=== PATIENT | female | born 1970 | race Hispanic/Latino ===

== ENCOUNTER 2022-11-22 07:48 | Inpatient (IN) | payer OTHER, SELFPAY ==
--- OUTSIDE RECORDS SUMMARY | 2022-11-22 07:50 | XMS REPORT | Continuity of Care Document ---
:1970 Author Organization [facility] t Address [address] [place] [address] [place] [address] Care Team Providers Name Role Phone KARLA SMITH Primary Care Physician Unavailable RADIOLOGY Attending Clinician Unavailable Radiology Attending Clinician Unavailable Doctor Unassigned, [place] Attending Clinician Unavailable TORI JONES Attending Clinician Unavailable KARLA SMITH Admitting Clinician Unavailable Problems Condition Condition Condition Status Onset Resolution Last Treating Co mments Source Name Details Category Date Date Treatment Clinician Date Disease Active 2011-04 Overview: Un david delivery delivery 0-08 Formattin ity of delivered delivered 00:00: g of this [place] 00 note Medical might be Branch different from the original. ICD10 Diagnosis Term Website Project Manager Utility Encounter Encounter Disease Active 2011-04 Overview: Univers for for 0-08 Formattin ity of sterilizat sterilizat 00:00: g of this [place] ion ion 00 note Medical might be Branch different from the original. ICD10 Diagnosis Term Website Project Manager Utility AMA AMA Disease Active 2011-04 Univers (advanced (advanced 0-08 ity of maternal maternal 00:00: [place] age) age) 00 Medical multigravi multigravi Br anch da 35+ da 35+ Allergies, Adverse Reactions, Alerts Allergy Allergy Status Severity Reaction(s) Onset Inactive Treating Comm ents Source Name Type Date Date Clinician NO KNOWN Drug Active Univers ALLERGIE Class ity of S [facility] Social History Social Habit Start Date Stop Date Quantity Comments Source Tobacco use and 2012-01-23 2012-01-23 Never used [facility] exposure 00:00:00 00:00:00 Medical Branch Sex [birth year] [facility] [place] 00:00:00 00:00:00 Medical Branch Smoking Status Start Date Stop Date Source Never smoker [facility] Medications Ordered Filled Start Stop Current Ordering Indication Dosage Frequency Signature Comments Components Source Medication Medication Date Date Medication? Clinician (SIG) Name Name cetirizine 2020-0 Yes [id number] 10mg Take 1 Univers (ZYRTEC) 10 1-29 tablet by ity of mg tablet 00:00: mouth 00 daily. Medical Branch benzonatate 2020-0 Yes [id number] 200mg Take 1 Univers 200 mg 1-29 capsule by ity of capsule 00:00: mouth 3 [place] 00 (three) Medical times [place] daily as needed for Cough. cetirizine 2020-0 Yes [id number] 10mg Take 1 Univers (ZYRTEC) 10 1-29 tablet by ity of mg tablet 00:00: mouth 00 daily. Medical Branch benzonatate 2020-0 Yes [id number] 200mg Take 1 Univers 200 mg 1-29 capsule by ity of capsule 00:00: mouth 3 [place] 00 (three) Medical times [place] daily as needed for Cough. Immunizations Ordered Filled Immunization Date Status Comments Sourc e Immunization Name Name Influenza Virus 2019-05-19 Completed Universit y of Vaccine Quad .5 mL 00:00:00 [facility] IM 6+ MO Branch Influenza Virus 2019-05-19 Completed Universit y of Vaccine Quad .5 mL 00:00:00 [facility] 6+ [place] Branch Procedures Procedure Date / Time Performed Performing Clinician Sourc e ASSIGNMENT OF BENEFITS 2021-05-23 18:50:51 Doctor Unassigned, No [facility] Name Medical Branch Encounters Start End Encounter Admission Attending Care Care Encounter Source Date/Time Date/Time Type Type Clinicians Facility Department ID 2021-05-23 2021-05-23 Outpatient R RADIOLOGY [facility] [id number] Univers 12:51:13 23:59:00 ity of [facility] 2021-05-23 2021-05-23 Hospital Radiology [facility] [id number] Univers 12:45:00 23:59:00 Encounter [place] [id number] ity of [place] [id number] [facility] [id number] [facility] 807 Branch 2021-05-23 2021-05-23 Orders Doctor ESTELA [id number] Univers 00:00:00 00:00:00 Only Unassigned, BIJAN [id number] ity of [place] [facility] [id number] G[place] as [id number] [place] [address] Branch 2019-05-19 2019-05-19 Outpatient R KAREN [facility] [id number] Univers 10:20:00 11:15:40 TORI garcia o f [facility] 2012-04-06 2012-04-06 Outpatient R [facility] [id number] Univers 00:00:00 14:11:48 5 ity [facility] Results Test Description Test Time Test Comments Results Result Comments Source HEMOGLOBIN A1c 2021-12-28 11:06:09 Test Item Value Reference Range Interpretation Comme nts HEMOGLOBIN A1c (test code = 9.3 % 4.2-5.6 H CITIZEN OF [employer] [address]) GUIDELINES FOR HGB A1C: PREDIABETES/INC REASED RISK . . . . . . . 5.7-6.4% DIAGNO SIS OF DIABETES . . . . . . . . . >=6.5% WITH CONFIRMATION OR APPROPRIATE SYM PTOMS NOTE: ASSAY MAY BE AFFECTED BY HEM OGLOBINOPATHIES (SICKLE CELL ANEMIA, S- C DISEASE, OTHERS) OR ARTIFICIALLY LO WERED BY DECREASED RED CELL SURVIVAL ( HEMOLYTIC ANEMIAS, BLOOD LOSS, ETC.). CO NSIDER ALTERNATE TESTING OR LABORATORY C ONSULTATION. UNLESS OTHERWISE INDIC ATED, ALL TESTING PERFORMED [facility], [place] [address] LABOR ATORY DIRECTOR: RAJIV SPRAGUE M.D. CLIA NUMBER [id number] [place] [id number] ALBUMIN/CREATININE RATIO, URINE, [id number] 06:51:51 Test Item Value Reference Range Interpretation Comments CREATININE, URINE, 63.2 MG/DL NOT ESTAB CONC. (test code = 2072) ALBUMIN, URINE, 97.9 MG/DL NOT ESTAB RANDOM (test code = 13446) CALC ALBUMIN/CREAT, 1549 MG/G <30 H Note: RND (test code = Albumin/Cre atinine 34209) ratio reference interval reflec ts ADA and NKF guideli silke. COMPREHENSIVE METABOLIC [id number] 04:26:12 Test Item Value Reference Range Interpretation Comments GLUCOSE (test code = 191 MG/DL 70-99 H 2216) BUN (test code = 12 MG/DL 6-20 2207) CREATININE (test 0.66 MG/DL 0.60-1.30 code = 2214) eGFR (2020 CKD-EPI) 107 >60 (test code = 61809) ML/MIN/1.73 CALC BUN/CREAT (test 18 RATIO 6-28 code = 2235) SODIUM (test code = 138 MEQ/L 980-161 3167) POTASSIUM (test code 4.6 MEQ/L 3.5-5.4 = 2227) CHLORIDE (test code 101 MEQ/L 95-107 = 221) CARBON DIOXIDE (test 26 MEQ/L 19-31 code = 2206) CALCIUM (test code = 9.2 MG/DL 8.5-10.5 2208) PROTEIN, TOTAL (test 7.9 G/DL 6.1-8.3 code = 222) ALBUMIN (test code = 4.0 G/DL 3.5-5.2 2200) CALC GLOBULIN (test 3.9 G/DL 1.9-3.7 H code = 2240) CALC A/G RATIO (test 1.0 RATIO 1.0-2.6 code = 2234) BILIRUBIN, TOTAL 0.3 MG/DL See_Comment [Automated message] (test code = 2207) The syste m which generated this result transmit lisandro reference range : <=1.2. The refe rence range was not u sed to interpret th is result as normal/abnormal . ALKALINE PHOSPHATASE 95 U/L 40-128 (test code = 2204) AST (test code = 32 U/L 9-40 2217) ALT (test code = 21 U/L 5-40 2218) LIPID [id number] 04:26:12 Test Item Value Reference Range Interpretation Comments CHOLESTEROL (test 182 MG/DL <200 code = 2210) TRIGLYCERIDES (test 209 MG/DL <150 H code = 2232) HDL CHOLESTEROL (test 45 MG/DL >39 code = 2220) CALC LDL CHOL (test 104 MG/DL <100 H NOTE: C ALCULATED LDL code = 2237) IS BASED ON RAMIN-ZHANG METHOD WHICHINCLUDES ADJUSTABLE TRIGLYCERIDE:VL DL CHOLESTEROL RAT IO.THIS FACTOR VARIES B Y MEASURED TRIGLY CERIDE AND NON-HDLCHOL ESTEROL CONCENTRATIONS WITH INCREASED CALCU LATED LDL SEENIN HIGH ER TRIGLYCERIDE OR LOWER NON-HDL SPECIME NS. FOR MOREINFORMATION , SEE CLIENT ANNOUNCE MENT AT [email or web address] RISK RATIO LDL/HDL 2.31 RATIO <3.22 (test code = 2238)
[2022-11-22] MEDS ORDERED: NA CHLORIDE 0.9% 1,000 ML ONE (08:20)
[2022-11-22] MEDS ORDERED: MORPHINE 4 MG/ML SYR ONE ×2 (08:20→10:27)
[2022-11-22] MEDS ORDERED: ONDANSETRON 4 MG/2 ML VIAL ONE ×2 (08:21→12:27)
[2022-11-22 08:45] LABS: Specific Gravity 1.028 (1.005-1.030); Urine Bacteria None Seen /HPF (<20); Urine Bilirubin NEGATIVE (Negative); Urine Blood 1+ (Negative); Urine Clarity Extremely Turbid (Clear); Urine Color Yellow (Yellow); Urine Glucose 4+ (Over) (Negative); Urine Mucus Slight /HPF (None Seen); Urine Protein 3+ (Negative); Urine Urobilinogen Normal (Normal); Urine pH 6.5 (5.0-7.0)
[2022-11-22 08:50] LABS: Absolute Lymphocytes (CBC) 1.5 K/uL (0.7-4.9); Albumin 3.8 g/dL (3.4-5.0); Bilirubin Total 0.6 mg/dL (0.2-1.0); Hematocrit 39.6 % (36.0-45.0); Lymphocytes % 11.8 % (15.3-44.8); MCV 86.9 fL (80-100); Platelets 434 thou/uL (152-406); Potassium 4.1 mEq/L (3.5-5.1); Protein, Total 9.4 g/dL (6.4-8.2); RBC Red Blood Cell Count 4.55 M/uL (3.86-4.86)
--- NOTE | 2022-11-22 09:27 | RAD REPORT ---
EXAM DESCRIPTION: CTAbdomen Pelvis W Contrast - 11/22/2022 9:15 am CLINICAL HISTORY: Abdominal pain. ABD PAIN COMPARISON: Abdomen Pelvis W Contrast dated 03/15/2016; CT ABD PELVIS W CONTRAST dated 09/21/2013 TECHNIQUE: Biphasic CT imaging of the abdomen and pelvis was performed with 100 ml non-ionic IV cont rast. All CT scans are performed using dose optimization technique as appropriate and may include automated exposure control or mA/KV adjustment according to patient size. FINDINGS: Mild atelectasis is present in both lung bases. Mild diffuse fatty liver. The spleen, pancreas, adrenal glands and kidneys are within normal limits. There is a very large complex ventral hernia containing multiple loops of large small bowel. Centrall y there are some dilated bowel loops present with mild edema within the fat. This could indicate mild incarceration. No bowel obstruction. No pneumatosis coli. No evidence of significant lymphadenopath y. No suspicious bony findings. IMPRESSION: Very large complex ventral hernia as detailed. It is dilated stool-filled bowel loops in the medial left component of the hernia with edema within the omental fat suggests partial incarcera tion component is present. No active bowel obstruction or pneumatosis is seen, however.
--- NOTE | 2022-11-22 11:49 | ER ---
Nurse's Notes [facility] Name: Ksenia Dominguez Age: 51 yrs Sex: Female : 1970 Arrival Date: 11/22/2022 Time: 07:48 Bed 16 Private MD: Diagnosis: Ventral hernia without obstruction or gangrene Presentation: 11/22 07:55 Chief complaint: Patient states: "She has a hernia to her lower abdomen and that's ss where it is hurting." Pt c/o LLQ pain that began last night. Denies N/V/D and/or fever. Coronavirus screen: Client denies travel out of the [place] in the last 14 days. Ebola Screen: Patient denies exposure to infectious person. Patient denies travel to an Ebola-affected area in the 21 days before illness onset. Initial Sepsis Screen: Does the patient meet any 2 criteria? No. Patient's initial sepsis screen is negative. Does the patient have a suspected source of infection? No. Patient's initial sepsis screen is negative. Risk Assessment: Do you want to hurt yourself or someone else? Patient reports no desire to harm self or others. Onset of symptoms was November 21, 2022. 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 - Social history:: Smoking status: Patient denies any tobacco usage or history of. Screenin:23 [facility] ED Fall Risk Assessment (Adult) History of falling in the last 3 months, kc6 including since admission No falls in past 3 months (0 pts) Confusion or Disorientation No (0 pts) Intoxicated or Sedated No (0 pts) Impaired Gait No (0 pts) Mobility Assist Device Used No (0 pt) Altered Elimination No (0 pt) Score/Fall Risk Level 0 - 2 = Low Risk. Abuse screen: Denies threats or abuse. Denies injuries from another. Nutritional screening: No deficits noted. Tuberculosis screening: No symptoms or risk factors identified. Assessment: 08:23 General: Appears in no apparent distress. uncomfortable, obese, Behavior is calm, kc6 cooperative, appropriate for age. Pain: Complains of pain in umbilical area and left upper quadrant Pain does not radiate. Pain currently is 8 out of 10 on a pain scale. Noted to be guarding, moaning. Neuro: Level of Consciousness is awake, alert, obeys commands, Oriented to person, place, time, situation, Appropriate for age. Cardiovascular: Capillary refill < 3 seconds. Respiratory: Airway is patent Trachea midline Respiratory effort is even, unlabored, Respiratory pattern is regular, symmetrical. GI: Abdomen is round non-distended, obese, Bowel sounds present X 4 quads. Abd is soft X 4 quads Abdomen is tender to palpation in umbilical area and left upper quadrant Reports nausea, vomiting, Patient currently denies diarrhea. : No signs and/or symptoms were reported regarding the genitourinary system. Urine is clear. EENT: No signs and/or symptoms were reported regarding the EENT system. Derm: No signs and/or symptoms reported regarding the dermatologic system. Skin is intact, is healthy with good turgor, Skin is pink, warm \\T\\ dry. Musculoskeletal: No signs and/or symptoms reported regarding the musculoskeletal system. Circulation, motion, and sensation intact. Capillary refill < 3 seconds, Range of motion: intact in all extremities. 08:52 Reassessment: Patient appears in no apparent distress at this time. No changes from kc6 previously documented assessment. Patient and/or family updated on plan of care and expected duration. Pain level reassessed. Patient is alert, oriented x 3, equal unlabored respirations, skin warm/dry/pink. Patient denies pain at this time. Patient states feeling better. Patient states symptoms have improved. 09:46 Reassessment: Patient appears in no apparent distress at this time. No changes from kc6 previously documented assessment. Patient and/or family updated on plan of care and expected duration. Pain level reassessed. Patient is alert, oriented x 3, equal unlabored respirations, skin warm/dry/pink. 10:41 Reassessment: Patient appears in no apparent distress at this time. No changes from kc6 previously documented assessment. Patient and/or family updated on plan of care and expected duration. Pain level reassessed. Patient is alert, oriented x 3, equal unlabored respirations, skin warm/dry/pink. 11:33 Reassessment: Patient appears in no apparent distress at this time. No changes from kc6 previously documented assessment. Patient and/or family updated on plan of care and expected duration. Pain level reassessed. Patient is alert, oriented x 3, equal unlabored respirations, skin warm/dry/pink. Patient denies pain at this time. Patient states feeling better. Patient states symptoms have improved. 12:38 Reassessment: Patient appears in no apparent distress at this time. No changes from kc6 previously documented assessment. Patient and/or family updated on plan of care and expected duration. Pain level reassessed. Patient is alert, oriented x 3, equal unlabored respirations, skin warm/dry/pink. 13:51 Reassessment: Patient appears in no apparent distress at this time. No changes from kc6 previously documented assessment. Patient and/or family updated on plan of care and expected duration. Pain level reassessed. Patient is alert, oriented x 3, equal unlabored respirations, skin warm/dry/pink. 14:57 Reassessment: Patient appears in no apparent distress at this time. No changes from kc6 previously documented assessment. Patient and/or family updated on plan of care and expected duration. Pain level reassessed. Patient is alert, oriented x 3, equal unlabored respirations, skin warm/dry/pink. Vital Signs: 07:55 BP 163 / 120; Pulse 104; Resp 20; Temp 98(O); Pulse Ox 96% ; Weight 145.15 kg; Height 5 ss ft. 5 in. ; Pain 8/10; 08:23 BP 145 / 100; Pulse 96; Resp 19 S; Pulse Ox 99% on R/A; Pain 8/10; kc6 08:52 BP 109 / 75; Pulse 90; Resp 18 S; Pulse Ox 98% on R/A; Pain 0/10; kc6 09:46 BP 131 / 77; Pulse 83; Resp 17 S; Pulse Ox 96% on R/A; kc6 10:41 BP 127 / 77; Pulse 87; Resp 16 S; Pulse Ox 94% on R/A; kc6 11:33 BP 120 / 72; Pulse 85; Resp 18 S; Pulse Ox 94% on R/A; kc6 12:38 BP 132 / 83; Pulse 87; Resp 17 S; Pulse Ox 96% on R/A; Pain 6/10; kc6 13:51 Pulse 87; Resp 17 S; Pulse Ox 95% on R/A; kc6 14:57 BP 143 / 94; Pulse 85; Resp 17 S; Pulse Ox 93% on R/A; kc6 07:55 Body Mass Index 53.25 (145.15 kg, 165.1 cm) ss 07:55 Pain Scale: Adult ss 08:23 Pain Scale: Adult kc6 08:52 Pain Scale: Adult kc6 12:38 Pain Scale: Adult kc6 ED Course: 07:51 Patient arrived in ED. im 07:57 Triage completed. ss 07:58 Arm band placed on. ss 07:59 Jeimy Walters FNP-C is PHCP. kb 07:59 Salomón Ramirez MD is Attending Physician. kb 08:02 Verona Gonzalez RN is Primary Nurse. kc6 08:25 Patient has correct armband on for positive identification. Placed in gown. Bed in low kc6 position. Call light in reach. Side rails up X 1. Adult w/ patient. 08:50 Inserted saline lock: 20 gauge in left antecubital area, using aseptic technique. aw1 08:50 Initial lab(s) drawn, by me, sent to lab. Urine collected: clean catch specimen, clear. aw1 09:16 CT Abd/Pelvis - IV Contrast Only In Process Unspecified. EDMS 11:48 Dhruv Bradshaw MD is Hospitalizing Provider. kb 14:45 No provider procedures requiring assistance completed. kc6 14:45 Patient admitted, IV remains in place. kc6 Administered Medications: 08:22 Drug: morphine IVP or IV 4 mg Route: IVP; Infused Over: 4 mins; Site: right antecubital;kc6 08:53 Follow up: Response: No adverse reaction; Pain is decreased; RASS: Alert and Calm (0) kc6 08:22 Drug: Ondansetron IVP 4 mg Route: IVP; Site: right antecubital; kc6 08:53 Follow up: Response: No adverse reaction; Nausea is decreased; Vomiting decreased kc6 08:22 Drug: NS 0.9% IV 1000 ml Route: IV; Rate: 1000 ml; Site: right antecubital; kc6 12:12 Follow up: Response: No adverse reaction; IV Status: Completed infusion; IV Intake: kc6 1000ml 10:25 Drug: morphine IVP or IV 4 mg Route: IVP; Infused Over: 4 mins; Site: right antecubital;kc6 11:44 Follow up: Response: No adverse reaction; Pain is decreased; RASS: Alert and Calm (0) kc6 12:31 Drug: Mineral Oil 30 ml Route: PO; kc6 13:52 Follow up: Response: No adverse reaction kc6 12:31 Drug: fentaNYL (PF) IVP 50 mcg Route: IVP; Site: right antecubital; kc6 13:52 Follow up: Response: No adverse reaction; Pain is decreased; RASS: Alert and Calm (0) kc6 12:31 Drug: Ondansetron IVP 4 mg Route: IVP; Site: right antecubital; kc6 13:52 Follow up: Response: No adverse reaction; Nausea is decreased; Vomiting decreased kc6 Medication: 14:45 VIS not applicable for this client. kc6 Intake: 12:12 IV: 1000ml; Total: 1000ml. kc6 Outcome: 11:48 Decision to Hospitalize by Provider. kb 14:45 Admitted to Med/surg accompanied by tech, via wheelchair, room 229, with chart, Report kc6 called to Melanie Fierro RN 14:45 Condition: stable 14:45 Instructed on the need for admit. kc6 15:04 Patient left the ED. kc6 Signatures: Dispatcher [employer] Jeimy Franco, MICHAEL-C YACHT RIGGER-Linh Baltazar RN RN ss Campbell, Kaitlyn, RN RN kc6 Bhumika Mac Alyssa aw1
--- NOTE | 2022-11-22 11:49 | EDPHYS ---
Physician Documentation [facility] Name: Ksenia Dominguez Age: 51 yrs Sex: Female : 1970 Arrival Date: 11/22/2022 Time: 07:48 Bed 16 Private MD: ED Physician Salomón Ramirez HPI: 11/22 08:16 This 51 yrs old Female presents to ER via Ambulatory with complaints of kb Abdominal Pain. 08:16 The patient presents with abdominal pain in the left upper quadrant. Onset: The kb symptoms/episode began/occurred yesterday. The symptoms do not radiate. Associated signs and symptoms: none. The symptoms are described as constant. Modifying factors: The symptoms are alleviated by nothing, the symptoms are aggravated by pressure. Severity of pain: At its worst the pain was moderate in the emergency department the pain is unchanged. The patient has not experienced similar symptoms in the past. The patient has not recently seen a physician. 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 - Social history:: Smoking status: Patient denies any tobacco usage or history of. ROS: 08:15 Constitutional: Negative for fever, chills, and weight loss. kb 08:15 Abdomen/GI: Positive for abdominal pain, Negative for nausea, vomiting, and diarrhea. 08:15 All other systems are negative. Exam: 08:15 Constitutional: This is a well developed, well nourished patient who is awake, alert, kb and in no acute distress. Head/Face: Normocephalic, atraumatic. ENT: Moist Mucous membranes Cardiovascular: Regular rate and rhythm with a normal S1 and S2. No gallops, murmurs, or rubs. No pulse deficits. Respiratory: Respirations even and unlabored. No increased work of breathing. Talking in full sentences Skin: Warm, dry with normal turgor. Normal color. MS/ Extremity: Pulses equal, no cyanosis. Neurovascular intact. Full, normal range of motion. Neuro: Awake and alert, GCS 15, oriented to person, place, time, and situation. Moves all extremities. Normal gait. 08:15 Abdomen/GI: Inspection: obese Bowel sounds: normal, Palpation: soft, in all quadrants, moderate abdominal tenderness, in the left upper quadrant, Hernia: noted in the umbilical area, reduced. Vital Signs: 07:55 BP 163 / 120; Pulse 104; Resp 20; Temp 98(O); Pulse Ox 96% ; Weight 145.15 kg; Height 5 ss ft. 5 in. ; Pain 8/10; 08:23 BP 145 / 100; Pulse 96; Resp 19 S; Pulse Ox 99% on R/A; Pain 8/10; kc6 08:52 BP 109 / 75; Pulse 90; Resp 18 S; Pulse Ox 98% on R/A; Pain 0/10; kc6 09:46 BP 131 / 77; Pulse 83; Resp 17 S; Pulse Ox 96% on R/A; kc6 10:41 BP 127 / 77; Pulse 87; Resp 16 S; Pulse Ox 94% on R/A; kc6 11:33 BP 120 / 72; Pulse 85; Resp 18 S; Pulse Ox 94% on R/A; kc6 12:38 BP 132 / 83; Pulse 87; Resp 17 S; Pulse Ox 96% on R/A; Pain 6/10; kc6 13:51 Pulse 87; Resp 17 S; Pulse Ox 95% on R/A; kc6 14:57 BP 143 / 94; Pulse 85; Resp 17 S; Pulse Ox 93% on R/A; kc6 07:55 Body Mass Index 53.25 (145.15 kg, 165.1 cm) ss 07:55 Pain Scale: Adult ss 08:23 Pain Scale: Adult kc6 08:52 Pain Scale: Adult kc6 12:38 Pain Scale: Adult kc6 MDM: 07:59 Patient medically screened. kb 08:16 Data reviewed: vital signs, nurses notes. kb 11:49 Differential diagnosis: non-specific abd pain, hernia, uti, bowel obstruction. kb Consideration of Admission/Observation Patient was admitted/placed on observation. Escalation of care including admission/observation considered. Management of patient was discussed with the following: Hospitalist: Dr Bradshaw accepts pt for admission. Bus Operator: Dr Huong accepts pt for consultation. Historians other than the Patient: Daughter/Son: daughter. Counseling: I had a detailed discussion with the patient and/or guardian regarding: the historical points, exam findings, and any diagnostic results supporting the discharge/admit diagnosis, lab results, radiology results, the need for further work-up and treatment in the hospital. 11/22 08:00 Order name: CBC with Diff; Complete Time: 08:56 kb 11/22 08:00 Order name: CMP; Complete Time: 08:56 kb 11/22 08:00 Order name: Lipase; Complete Time: 08:56 kb 11/22 08:00 Order name: Urinalysis w/ reflexes; Complete Time: 08:56 kb 11/22 08:48 Order name: Urine Culture EDMS 11/22 09:50 Order name: Lactate w/ 2H reflex if indic.; Complete Time: 10:29 kb 11/22 13:15 Order name: CBC with Automated Diff EDMS 11/22 13:15 Order name: CBC with Automated Diff EDMS 11/22 13:15 Order name: Comprehensive Metabolic Panel EDMS 11/22 13:15 Order name: Comprehensive Metabolic Panel EDMS 11/22 13:15 Order name: Magnesium EDMS 11/22 13:15 Order name: Magnesium EDMS 11/22 08:00 Order name: CT Abd/Pelvis - IV Contrast Only; Complete Time: 09:27 kb 11/22 13:13 Order name: CONS Physician Consult EDMS 11/22 13:15 Order name: NPO EDMS 11/22 08:00 Order name: IV Saline Lock; Complete Time: 08:23 kb 11/22 08:00 Order name: Labs collected and sent; Complete Time: 08:23 kb Administered Medications: 08:22 Drug: morphine IVP or IV 4 mg Route: IVP; Infused Over: 4 mins; Site: right antecubital;kc6 08:53 Follow up: Response: No adverse reaction; Pain is decreased; RASS: Alert and Calm (0) kc6 08:22 Drug: Ondansetron IVP 4 mg Route: IVP; Site: right antecubital; kc6 08:53 Follow up: Response: No adverse reaction; Nausea is decreased; Vomiting decreased kc6 08:22 Drug: NS 0.9% IV 1000 ml Route: IV; Rate: 1000 ml; Site: right antecubital; kc6 12:12 Follow up: Response: No adverse reaction; IV Status: Completed infusion; IV Intake: kc6 1000ml 10:25 Drug: morphine IVP or IV 4 mg Route: IVP; Infused Over: 4 mins; Site: right antecubital;kc6 11:44 Follow up: Response: No adverse reaction; Pain is decreased; RASS: Alert and Calm (0) kc6 12:31 Drug: Mineral Oil 30 ml Route: PO; kc6 13:52 Follow up: Response: No adverse reaction kc6 12:31 Drug: fentaNYL (PF) IVP 50 mcg Route: IVP; Site: right antecubital; kc6 13:52 Follow up: Response: No adverse reaction; Pain is decreased; RASS: Alert and Calm (0) kc6 12:31 Drug: Ondansetron IVP 4 mg Route: IVP; Site: right antecubital; kc6 13:52 Follow up: Response: No adverse reaction; Nausea is decreased; Vomiting decreased kc6 Disposition: 18:25 Co-signature as Attending Physician, Salomón Ramirez MD I reviewed the patient's care rt provided by the Advanced Practice Provider and agree with the diagnosis and treatment plan. Disposition Summary: 11/22/22 11:48 Hospitalization Ordered Hospitalization Status: Inpatient Admission kb Provider: Dhruv Bradshaw [facility] ([facility]) kb Condition: Stable kb Problem: new kb Symptoms: are unchanged kb Bed/Room Type: Standard Room Assignment: 229(11/22/22 14:02) ss Diagnosis - Ventral hernia without obstruction or gangrene kb Forms: - Medication Reconciliation Form kb - SBAR form kb Signatures: Dispatcher [employer] Jeimy Franco, MICHAEL-C ROLLER-Linh Baltazar RN RN ss Verona Gonzalez RN RN kc6 Salomón Ramirez MD MD rt Corrections: (The following items were deleted from the chart) 14:02 11:48 kb ss
[2022-11-22] MEDS ORDERED: MINERAL OIL 30 ML UCUP PO ONE ×3 (12:00→23:19)
--- NOTE | 2022-11-22 12:16 | P.HP ---
Certification for Inpatient Patient admitted to: Inpatient Practitioner: I am a practitioner with admitting privileges, knowledge of patient current condition, hospital course, and medical plan of care. Services: Services provided to patient in accordance with Admission requirements found in Title 42 Section 412.3 of the Code of Federal Regulations Patient History Date of Service: 11/22/22 Reason for admission: Large complex ventral hernia; incarcerated History of Present Illness: 51 yo F, PMH: NIDDM2, Hypertension, Hernia repair (~6 years ago); large ventral hernia Patient presented to the emergency department with left abdominal pain since yesterday. She has had episodes of mild abdominal pain in the past however never this severe. Family reports having a hernia repair done ~[address] Sheehan. She reports nausea/vomiting in the ED. Last BM was yesterday evening. Denies chest pain. No fever or chills. Denies shortness of breath. Patient did experience nausea with vomiting while in the ED on palpation of abdomen prior to admission. Her symptoms are aggravated by pressure/palpation and alleviated by nothing. CT abdomen done in the ED reports very large complex ventral hernia. dilated stool-filled bowel loops in the medial left component of the hernia with edema within the omental fat suggests partial incarceration component is present. No active bowel obstruction or pneumatosis is seen. ED consulted Dr. Borja who recommended admission, mineral oil, and will see patient in consult. Allergies No Known Allergies Allergy (Verified 03/15/16 22:16) Home Medications: Lisinopril [Zestril] 10 mg PO DAILY 11/22/22 Metformin HCl [Glucophage] 500 mg PO BIDWM 11/22/22 - Past Medical/Surgical History Diabetic: Yes -: Hernia -: Hypertension -: NIDDM2 -: hernia repair -: - Family History Family History: Reviewed- Non-Contributory - Social History Smoking Status: Never smoker Alcohol use: No CD- Drugs: No Caffeine use: Yes Place of Residence: Home Review of Systems 10-point ROS is otherwise unremarkable Physical Examination - Studies Laboratory Data (last 24 hrs) 11/22/22 11/22/22 08:15 08:15 WBC 12.90 H Hgb 13.0 Hct 39.6 Plt Count 434 H Sodium 132 L Potassium 4.1 BUN 17 Creatinine 1.04 H Glucose 323 H Total Bilirubin 0.6 AST 34 ALT 39 Alkaline Phosphatase 113 Lipase 38 Assessment and Plan - Advance Directives Does patient have a Living Will: No Does patient have a Durable POA for Healthcare: No - Code Status/Comfort Care Code Status Assessed: Yes Code Status: Full Code Physician Review Additional Text: Physical Exam: GEN: Alert, oriented, NAD, morbidly obese HEENT: Normal conjunctiva, sclera anicteric CV: Regular rate and rhythm, no edema Pulm: Nonlabored respirations on room air, clear bilaterally ABD: large ventral hernia, tender to palpation on left Integumentary: No rashes Neuro: Normal speech, normal affect vitals reviewed Problem List: Large complex ventral hernia with partial incarceration Hyponatremia, pseudo Hypertension NIDDM2 Large complex ventral hernia with partial incarceration reports getting hernia repair ~[address] CT abdomen (11/22): Large complex ventral hernia. dilated stool-filled bowel loops in the medial left component of the hernia with edema within the omental fat suggests partial incarceration No active bowel obstruction or pneumatosis is seen. General Surgery consulted - Dr. Borja by ED recommended mineral oil PO x1, repeat at 3pm Started empiric Zosyn (11/22-) afebrile, +leukocytosis (12.9) not septic NPO, IVF PRN pain medication, PRN antiemetics repeat labs in am Hyponatremia pseudo-hypoNa normal Na once corrected for sodium Hypertension NIDDM2 confirm home medications, restart as appropriate SSI glc elevated pt states she only takes metformin and glc typically 130-150s SCDs Code: Full Dispo: Home, ~2 days Time Spent Managing Pts Care (In Minutes): 70
[2022-11-22] MEDS ORDERED: FENTANYL CITR 100 MCG/2 ML ONE (12:27)
[2022-11-22] MEDS ORDERED: MORPHINE 2 MG/ML SYR IV PRN ×2 (13:11→17:25)
[2022-11-22] MEDS: NA CHLORIDE 0.9% 1,000 ML IV SCH (15:17)
[2022-11-22 15:45] VITALS: BMI 53.2
[2022-11-22] MEDS ORDERED: MORPHINE 4 MG/ML SYR IV ONE (16:46)
[2022-11-22] MEDS: ONDANSETRON 4 MG/2 ML VIAL IV PRN (16:52)
[2022-11-22] MEDS: PIPER TAZO 3.375 GM in NA CHLORIDE 0.9% 100 ML IV SCH (16:52)
[2022-11-22] MEDS: INSULIN -REGULAR HUMAN 50 UNIT/0.5 ML ML SQ SCH ×2 (16:53→20:58)
[2022-11-22] MEDS: MORPHINE 4 MG/ML SYR IV PRN (20:59)
--- NOTE | 2022-11-23 00:14 | P.HP ---
Date of Service: 11/22/22 PC: I was asked to see this [id number] female who presented to the emergency room with severe abdominal pain. HPC: Patient has had abdominal pain since last night. Pain intensified. Came in waves. She could no longer stand and came to the emergency room for treatment. Has a history of abdominal wall hernia. Last bowel movement 48 hours ago. No nausea or vomiting just pain that comes in waves. Almost as bad as labor pains. PSHx: Previous attempted repair on incisional hernia of the abdominal wall PMHx: Morbid obesity Social Hx: No known allergies Sys R: No cough, wheeze, shortness of breath. No chest pain or palpitations. Says she has been doing fine with her hernias for the last few years. Recently ate a dinner consisting of pork chops. Just had a light meals yesterday. O/E: Awake alert vital signs are stable HEENT: Not jaundiced Chest: Chest movement equal bilaterally Abd: Large abdomen, with fullness to the left side. On palpation 1 can feel a large hernia on the left side of the abdomen excepting down to the pelvis. This is almost completely outside of the peritoneal cavity. No pain or tenderness. Obviously not reducible due to loss of domain. No redness or erythema over it however. [place]is[place]: Appears intact Data: CT scan shows a large incisional hernia. There is some congestion of the mesentery, no areas of obvious vascular compromise, no area of true acute obstruction. Impression: This patient, with a large hernia, I believe has had a dietary indiscretion. She has been given some mineral oil. She has been admitted for observation. Plan: IV fluids, mineral oil for now. We will repeat her lab work and reexamine her in the a.m. I saw her late this evening, and that she is not in any acute crisis. In fact she says that she had her rumblings in her stomach appeared to have slowed down somewhat. Did vomit twice today but declines NG tube. We will reassess in the a.m. But most likely will not require any surgical intervention.
[2022-11-23] MEDS: PIPER TAZO 3.375 GM in NA CHLORIDE 0.9% 100 ML IV SCH ×3 (00:25→07:52)
[2022-11-23] MEDS: NA CHLORIDE 0.9% 1,000 ML IV SCH ×3 (00:27→20:29)
[2022-11-23] MEDS: MORPHINE 4 MG/ML SYR IV PRN ×5 (00:32→20:29)
[2022-11-23] MEDS: ONDANSETRON 4 MG/2 ML VIAL IV PRN ×2 (00:32→06:46)
[2022-11-23 04:32] LABS: Albumin 3.1 g/dL (3.4-5.0); Bilirubin Total 0.8 mg/dL (0.2-1.0); Magnesium 2.1 mg/dL (1.6-2.4); Potassium 4.1 mEq/L (3.5-5.1); Protein, Total 7.8 g/dL (6.4-8.2)
[2022-11-23 04:33] LABS: Absolute Lymphocytes (CBC) 0.8 K/uL (0.7-4.9); Hematocrit 35.7 % (36.0-45.0); Lymphocytes % 12.7 % (15.3-44.8); MPV 7.7 fL (7.6-11.3); Platelets 334 thou/uL (152-406)
--- NOTE | 2022-11-23 07:02 | P.PN ---
Date of Service: 11/23/22 Subjective: feeling better today abdominal pain improving no BM yet, +flatus nausea/vomited overnight ROS: 10 point ROS as noted above, otherwise negative Physical Exam: GEN: Alert, oriented, NAD, morbidly obese HEENT: Normal conjunctiva, sclera anicteric CV: Regular rate and rhythm, no edema Pulm: Nonlabored respirations on room air, clear bilaterally ABD: large ventral hernia, tender to palpation just left of umbilicus Neuro: Normal speech, normal affect vitals reviewed Problem List: Large complex ventral hernia with partial incarceration Hyponatremia, pseudo Hypertension NIDDM2 with hyperglycemia Large complex ventral hernia with partial incarceration reports getting hernia repair ~[address] CT abdomen (11/22): Large complex ventral hernia. dilated stool-filled bowel loops in the medial left component of the hernia with edema within the omental fat suggests partial incarceration No active bowel obstruction or pneumatosis is seen. General Surgery consulted - Dr. Borja given mineral oil PO x2 (11/22) no BM yet, +flatus cont IVF while NPO Will reassess today not septic cont empiric Zosyn (11/22-) afebrile, +leukocytosis resolved PRN pain medication, PRN antiemetics Hyponatremia, pseudo pseudo-hypoNa normal Na once corrected for glc Hypertension NIDDM2 confirm home medications, restart as appropriate SSI A1c: pending pt states she only takes metformin and glc typically 130-150s VTE: SCDs Code: Full Dispo: Home, ~1-2 days Pending further improvement
[2022-11-23] MEDS: INSULIN GLARGINE 100 UNIT/ML SQ SCH (08:01)
[2022-11-23] MEDS: INSULIN -REGULAR HUMAN 50 UNIT/0.5 ML ML SQ SCH ×4 (08:01→20:29)
[2022-11-23] MEDS ORDERED: MAGNESIUM CITRATE 300 ML BOT PO ONE (14:15)
[2022-11-23] MEDS ORDERED: MINERAL OIL 30 ML UCUP FT ONE (21:16)
--- NOTE | 2022-11-23 21:16 | P.PN ---
Date of Service: 11/23/22 S: Patient feels somewhat better today, pain is less, has been passing gas but still no bowel movements. O: Vital signs are stable, abdomen is softer, hernia is obviously still present but feels less tense than it did on admission. A: Partial small bowel obstruction appears to be resolving P: Patient is already received some mineral tonight, will follow with some mineral oil as well. Anticipate that by tomorrow the patient should be stable enough and her bowel function returned so that she may be discharged.
[2022-11-24] MEDS: PIPER TAZO 3.375 GM in NA CHLORIDE 0.9% 100 ML IV SCH ×3 (01:09→17:00)
[2022-11-24] MEDS: MORPHINE 4 MG/ML SYR IV PRN ×4 (01:09→21:01)
[2022-11-24] MEDS: NA CHLORIDE 0.9% 1,000 ML IV SCH ×2 (05:55→16:33)
[2022-11-24] MEDS: INSULIN -REGULAR HUMAN 50 UNIT/0.5 ML ML SQ SCH ×3 (06:20→18:37)
--- NOTE | 2022-11-24 06:45 | P.PN ---
Date of Service: 11/24/22 Subjective: Feeling better today minimal abdominal pain - improving Not needing as frequent pain medication no BM yet, no n/v/d ROS: 10 point ROS as noted above, otherwise negative Physical Exam: GEN: Alert, oriented, NAD, morbidly obese HEENT: Normal conjunctiva, sclera anicteric CV: Regular rate and rhythm, no edema Pulm: Nonlabored respirations on room air, clear bilaterally ABD: large ventral hernia, mildly tender to palpation just left of umbilicus Neuro: Normal speech, normal affect vitals reviewed Problem List: Large complex ventral hernia with partial incarceration Hyponatremia, pseudo Hypertension NIDDM2 with hyperglycemia Large complex ventral hernia with partial incarceration reports getting hernia repair ~[address] CT abdomen (11/22): Large complex ventral hernia. dilated stool-filled bowel loops in the medial left component of the hernia with edema within the omental fat suggests partial incarceration No active bowel obstruction or pneumatosis is seen. General Surgery consulted - Dr. Borja given mineral oil PO x2 (11/22) and x1 (11/23) no BM yet, +flatus cont IVF Full liquids - advance as tolerated 11/24 not septic cont empiric Zosyn (11/22-) afebrile, +leukocytosis resolved PRN pain medication, PRN antiemetics Hyponatremia, pseudo pseudo-hypoNa normal Na once corrected for glc Hypertension NIDDM2 confirm home medications, restart as appropriate SSI A1c: pending pt states she only takes metformin and glc typically 130-150s VTE: SCDs Code: Full Dispo: Home, in next 24hrs Pending further improvement, + BM / tolerating diet
[2022-11-24] MEDS: INSULIN GLARGINE 100 UNIT/ML SQ SCH (08:31)
[2022-11-24 08:47] LABS: Albumin 2.7 g/dL (3.4-5.0); Bilirubin Total 0.5 mg/dL (0.2-1.0); Potassium 3.8 mEq/L (3.5-5.1); Protein, Total 7.3 g/dL (6.4-8.2)
[2022-11-25] MEDS: INSULIN -REGULAR HUMAN 50 UNIT/0.5 ML ML SQ SCH ×2 (00:52→06:25)
[2022-11-25] MEDS: PIPER TAZO 3.375 GM in NA CHLORIDE 0.9% 100 ML IV SCH ×2 (00:52→09:00)
[2022-11-25] MEDS ORDERED: NA CHLORIDE 0.9% 100 ML ONE (01:01)
[2022-11-25] MEDS: NA CHLORIDE 0.9% 1,000 ML IV SCH (02:00)
[2022-11-25 03:39] LABS: Potassium 3.8 mEq/L (3.5-5.1)
--- NOTE | 2022-11-25 08:23 | P.DS ---
Admission Date: 11/22/22 Discharge Date: 11/25/22 Disposition: ROUTINE DISCHARGE Discharge Condition: GOOD Reason for Admission: Large complex ventral hernia; incarcerated Consultations: General Surgery - Dr. Borja Brief History of Present Illness: 51 yo F, PMH: NIDDM2, Hypertension, Hernia repair (~6 years ago); large ventral hernia Patient presented to the emergency department with left abdominal pain since yesterday. She has had episodes of mild abdominal pain in the past however never this severe. Family reports having a hernia repair done ~[address] Sheehan. She reports nausea/vomiting in the ED. Last BM was yesterday evening. Denies chest pain. No fever or chills. Denies shortness of breath. Patient did experience nausea with vomiting while in the ED on palpation of abdomen prior to admission. Her symptoms are aggravated by pressure/palpation and alleviated by nothing. CT abdomen done in the ED reports very large complex ventral hernia. dilated stool-filled bowel loops in the medial left component of the hernia with edema within the omental fat suggests partial incarceration component is present. No active bowel obstruction or pneumatosis is seen. ED consulted Dr. Borja who recommended admission, mineral oil, and will see patient in consult. Hospital Course: Problem List: Large complex ventral hernia with partial incarceration Hyponatremia, pseudo Hypertension NIDDM2 with hyperglycemia Patient presented with left abdominal pain associated with nausea/vomiting. CT abdomen noted a very large complex ventral hernia with signs concerning for likely partial incarceration. No active bowel obstruction or pneumatosis seen. General surgery was consulted and patient was managed medically with bowel rest, IVF, mineral oil, and had eventual resolution of her symptoms. She did not require surgical intervention. She received IV antibiotics as precaution / empirically. Patient was feeling better, abdominal pain improved, remained afebrile, leukocytosis resolved, tolerating and was deemed stable for discharge. Patient was tolerating liquids and had a BM of day of discharge. no change in home medications, continue as prescribed Follow up: PCP 3-5 days Physical Exam: GEN: Alert, oriented, NAD HEENT: Normal conjunctiva, sclera anicteric CV: Regular rate and rhythm, no edema Pulm: Nonlabored respirations on room air, clear bilaterally ABD: large ventral hernia, mildly tender to palpation just left of umbilicus Neuro: Normal speech, normal affect Vital Signs/Physical Exam: Temp Pulse Resp BP Pulse Ox 98.0 F 89 16 138/85 94 11/25/22 04:00 11/25/22 04:00 11/25/22 04:00 11/25/22 04:00 11/25/22 04:00 Laboratory Data at Discharge: WBC 6.30 thou/uL (4.3-10.9) 11/23/22 03:58 Hgb 12.0 g/dL (12.0-15.0) 11/23/22 03:58 Hct 35.7 % (36.0-45.0) L 11/23/22 03:58 Plt Count 334 thou/uL (152-406) 11/23/22 03:58 Sodium 136 mEq/L (136-145) 11/25/22 02:21 Potassium 3.8 mEq/L (3.5-5.1) 11/25/22 02:21 BUN 11 mg/dL (7-18) 11/25/22 02:21 Creatinine 0.71 mg/dL (0.55-1.02) 11/25/22 02:21 Glucose 226 mg/dL (74-106) H 11/25/22 02:21 Magnesium 2.1 mg/dL (1.6-2.4) 11/23/22 03:58 Total Bilirubin 0.5 mg/dL (0.2-1.0) 11/24/22 08:16 AST 30 U/L (15-37) 11/24/22 08:16 ALT 50 U/L (13-56) 11/24/22 08:16 Alkaline Phosphatase 86 U/L (45-117) 11/24/22 08:16 Lipase 38 U/L (13-75) 11/22/22 08:15 Home Medications: Lisinopril [Zestril] 10 mg PO DAILY 11/22/22 Metformin HCl [Glucophage] 500 mg PO BIDWM 11/22/22 Physician Discharge Instructions: Patient presented with left abdominal pain associated with nausea/vomiting. CT abdomen noted a very large complex ventral hernia with signs concerning for likely partial incarceration. No active bowel obstruction or pneumatosis seen. General surgery was consulted and patient was managed medically with bowel rest, IVF, mineral oil, and had eventual resolution of her symptoms. She did not require surgical intervention. She received IV antibiotics as precaution / empirically. Patient was feeling better, abdominal pain improved, remained afebrile, leukocytosis resolved, tolerating and was deemed stable for discharge. Patient was tolerating liquids and had a BM of day of discharge. no change in home medications, continue as prescribed Follow up: PCP 3-5 days Followup: NONE,NONE [Primary Care Provider] - Time spent managing pt's care (in minutes): 45
[2022-11-25] MEDS ORDERED: POTASSIUM CL SA 10 MEQ TAB PO ONE (09:00)
[2022-11-25] MEDS: INSULIN GLARGINE 100 UNIT/ML SQ SCH (09:16)
[2022-11-25 09:38] VITALS: BP 152/85; TEMP 97.9
[2022-11-25 09:44] VITALS: O2SAT 91
== END 2022-11-25 09:51 | disposition home or self-care (01) | DRG 394 ==
LOC: ER 07:48 → ERHOLD 13:10 → 2ND 14:55
PROVIDERS: ADMIT Hospitalist; ATTEND Hospitalist
DX: K43.6 Other and unspecified ventral hernia with obstruction, without gangrene (principal); E87.1 Hypo-osmolality and hyponatremia; Z68.43 Body mass index [BMI] 50.0-59.9, adult; E66.01 Morbid (severe) obesity due to excess calories; E11.65 Type 2 diabetes mellitus with hyperglycemia; I10 Essential (primary) hypertension; Z79.84 Long term (current) use of oral hypoglycemic drugs; Z79.899 Other long term (current) drug therapy
CPT/HCPCS: 36415; 74177; 80048; 80053; 81001; 82947; 83036; 83605; 83690; 83735; 85025; 87086; 87088; 94760; 96361; 96374; 96375; 99285; J1815; J2270; J2405; J2543; J3010; J7030; Q9967